=== PATIENT | female | born 1990 | race Caucasian/White ===

== ENCOUNTER 2018-03-13 12:30 | Emergency (ER) | payer SELFPAY ==
--- NOTE | 2018-03-13 13:14 | Emergency Department Record ---
History of Present Illness - General Chief Complaint: Abdominal Pain Stated Complaint: ABD PAIN,NAUSEA Time Seen by Provider: 03/13/18 12:56 Source: Patient Mode of Arrival: Ambulatory Limitations: No limitations - History of Present Illness Initial Comments: Pt ambulates to ED with complaint of pain in the left lower abd for 4-6 weeks. "It comes and goes like 5 times". Pain is sharp without radiation. There is no urinary pain or frequency and no vaginal discharge. Pt is with fiancee in ED. Has inplanted control to the right upper arm for 3 years. Period is normal and started today. No hx renal stone. Over the past month or so has had episodes of this. When painful her appetite is decreased. No vomiting. Pt staates she does not have the pain at this time. Large [employer] beverage in hand. No fever or chills. MD Complaint: Abdominal pain Onset/Timin -: Month(s) Location: [facility]Q Radiation: None Severity: Moderate Severity scale (1-10): 5 Consistency: Intermittent Improves With: Nothing Worsens With: Nothing Associated Symptoms: Anorexia - Related Data Patient : No Home Medications Medication Instructions Recorded Confirmed Last Taken No Home Med [NO HOME MEDS] 03/13/18 03/13/18 Unknown Allergies Allergy/AdvReac Type Severity Reaction Status Date / Time No Known Drug Allergies Allergy Verified 03/13/18 12:47 Travel Screening - Travel/Exposure Within Last 30 Days Have you traveled within the last 30 days?: No - Travel/Exposure Within Last Year Have you traveled outside the [place] in the last year?: No - Additonal Travel Details Have you been exposed to anyone with a communicable illness?: No - Travel Symptoms Symptom Screening: None Review of Systems Constitutional: Denies: Chills, Fever, Weakness Eyes: Denies: Photophobia ENT: Denies: Congestion Respiratory: Denies: Cough Cardiovascular: Denies: Arrhythmia Endocrine: Denies: Fatigue Gastrointestinal: Reports: As per HPI Genitourinary: Denies: Abnormal menses, Discharge, Dyspareunia, Dysuria, Hematuria, Urgency Musculoskeletal: Denies: Arthralgia, Back pain Skin: Denies: Bruising Neurological: Denies: Abnormal gait Psychiatric: Denies: Anxiety Hematological/Lymphatic: Denies: Anemia Past Medical History - SOCIAL HISTORY Smoking Status: Current every day smoker Alcohol Use: Occasional Drug Use: None - RESPIRATORY Hx Respiratory Disorders: No - CARDIOVASCULAR Hx Cardio Disorders: No - NEURO Hx Neuro Disorders: No - GI Hx GI Disorders: No - Hx Genitourinary Disorders: No - ENDOCRINE Hx Endocrine Disorders: No - MUSCULOSKELETAL Hx Musculoskeletal Disorders: No - PSYCH Hx Psych Problems: No - HEMATOLOGY/ONCOLOGY Hx Hematology/Oncology Disorders: No Family Medical History Any Significant Family History?: No Physical Exam - General General Appearance: Alert, Oriented x3, Cooperative - Head Head exam: Atraumatic - Eye Eye exam: Normal appearance, PERRL - ENT ENT exam: Normal exam, Mucous membranes moist, Normal external ear exam, Normal orophraynx, TM's normal bilaterally - Neck Neck exam: Normal inspection, Full ROM. negative: Tenderness - Respiratory Respiratory exam: Normal lung sounds bilaterally. negative: Rhonchi, Wheezes - Cardiovascular Cardiovascular Exam: Regular rate, Normal rhythm, Normal heart sounds - GI/Abdominal GI/Abdominal exam: Soft, Normal bowel sounds. negative: Distended, Guarding, Rebound (mild left lower abd tenderness, easily distracable. ) - Extremities Extremities exam: Normal inspection - Back Back exam: Reports: Normal inspection - Neurological Neurological exam: Alert, Normal gait, Oriented X3 - Psychiatric Psychiatric exam: Normal affect, Normal mood - Skin Skin exam: Normal color Course Vital Signs 03/13/18 12:47 Temperature 98.8 F Pulse Rate 88 Respiratory 16 Rate Blood Pressure 135/85 Pulse Ox 98 - Reevaluation(s) Reevaluation #1: 03/13/18 13:57 Pt hungry and ready to go. No UTI and neg Preg. Will follow with [facility]. Return to ED if worse. Disposition Disposition: Discharge Clinical Impression: Pelvic pain, Nausea Disposition: Home, Self-Care Condition: (1) Good Instructions: Abdominal Pain (ED) Additional Instructions: Follow up At [facility] 2-3 days Forms: Patient Portal Access Quality - Quality Measures Quality Measures: N/A - Blood Pressure Screening Does Patient Have Any of the Following: No Blood Pressure Classification: Pre-Hypertensive BP Reading Systolic Measurement: 135 Diastolic Measurement: 85 Screening for High Blood Pressure: < Pre-Hypertensive BP, F/U Documented > [ [id number]] Pre-Hypertensive Follow-up Interventions: Follow-up with rescreen every year.
[2018-03-13 13:43] LABS: URINE APPEARANCE CLEAR; URINE BILIRUBIN SMALL (NEGATIVE); URINE BLOOD MODERATE (NEGATIVE); URINE GLUCOSE (UA) NEGATIVE (NEGATIVE); URINE KETONE NEGATIVE (NEGATIVE); URINE LEUKOCYTE ESTERASE NEGATIVE (NEGATIVE); URINE NITRITE NEGATIVE (NEGATIVE); URINE PROTEIN NEGATIVE (NEGATIVE)
[2018-03-13 13:45] LABS: URINE COLOR DARK YELLOW
[2018-03-13 13:46] LABS: HCG,QUALITATIVE URINE NEGATIVE (NEGATIVE)
[2018-03-13 13:58] LABS: URINE BACTERIA 2+; URINE EPITHELIAL CELLS >50 (FEW); URINE MUCUS HEAVY; URINE WBC 0 - 2 (0-2/hpf)
== END 2018-03-13 14:07 | disposition home or self-care (01) ==
LOC: ER 12:30
DX: R10.2 Pelvic and perineal pain (principal); R11.0 Nausea; R10.32 Left lower quadrant pain; F17.210 Nicotine dependence, cigarettes, uncomplicated
CPT/HCPCS: 81001; 81025; 99282